=== PATIENT | female | born 1945 | race Caucasian/White ===

== ENCOUNTER 2020-12-31 19:17 | Emergency (ER) | payer MEDICARE, SELFPAY ==
[2020-12-31 19:21] VITALS: BP 153/76; PULSE 76; RESP 16; TEMP 36.3; O2SAT 99; BMI 27.4
--- NOTE | 2020-12-31 20:10 | XR_ITS ---
WS: [id number] Left hip, AP and frog leg views, 12/31/2020 Clinical Data: injury Comparison: None. Findings: No fractures or dislocations are seen. The left hip joint is intact. The soft tissues are not remarka ble. The adjacent pelvis is normal. XR/XR hip LT 2-3V wo/w pel* [id number] Impression: Negative left hip.
--- NOTE | 2020-12-31 20:10 | XR_ITS ---
WS: [id number] Right wrist, 3 views, 12/31/2020 Clinical Data: injury Comparison: None. Findings: There is a nondisplaced fracture of the radial styloid. There is soft tissue swelling over the fractu re site. The distal ulna, carpal bones are intact. XR/XR wrist RT min 3V* [id number] Impression: Fracture of radial styloid of the right wrist with overlying soft tissue sean pereira
--- NOTE | 2020-12-31 20:10 | CTR_ITS ---
PROCEDURE INFORMATION: Exam: CT Maxillofacial Without Contrast; Mandible Exam date and time: 12/31/2020 8:14 PM Age: 75 years old Clinical indication: Injury or trauma; Fall; Blunt trauma (contusions or hematomas); Lip/oral cavity; Lower TECHNIQUE: Imaging protocol: Computed tomography maxillofacial without contrast. Exam focused on the mandible. Total images: 288 Radiation optimization: All CT scans at this facility use at least one of these dose optimization techniques: automated exposure control; mA and/or kV adjustment per patient size (includes targeted exams where dose is matched to clinical indication); or iterative reconstruction. COMPARISON: No relevant prior studies available. RADIATION DOSE METRICS: Total DLP (mGy-cm): 794.89 FINDINGS: Bones/joints: Mandible is unremarkable. No acute fracture. No visible facial bone fracture within the field of view. Paranasal sinuses: Normal. No air-fluid levels. Soft tissues: Mild soft tissue contusion upper lip. CT/CT facial bones wo con* [id number] IMPRESSION: 1. No visible facial bone fracture. 2. Mild soft tissue contusion upper lip. Radiation Dose CTDIVOL = (mGy): DLP = 794.89 (mGy-cm)
--- NOTE | 2020-12-31 20:10 | XR_ITS ---
WS: [id number] Left knee, 3 views, 12/31/2020 Clinical Data: injury Comparison: None. Findings: No fractures or dislocations are seen. There is medial joint compartment narrowing.. The patella is i ntact. There is swelling over the medial aspect of the left knee. XR/XR knee LT 3V* [id number] Impression: 1. Negative for fracture. 2. Medial joint compartment narrowing. 3. Soft tissue swelling over medial left knee.
--- NOTE | 2020-12-31 20:10 | XR_ITS ---
WS: [id number] Right knee, 3 views, 12/31/2020 Clinical Data: injury Comparison: None. Findings: No fractures or dislocations are seen. There is medial joint compartment narrowing. The patella is in tact. There is swelling in the subcutaneous tissue and the suprapatellar bursa. XR/XR knee RT 3V* [id number] Impression: 1. Anterior subcutaneous swelling and swelling this suprapatellar bursa of the right knee. 2. Narrowing of the medial joint compartment.
--- NOTE | 2020-12-31 20:10 | CTR_ITS ---
PROCEDURE INFORMATION: Exam: CT Head Without Contrast Exam date and time: 12/31/2020 8:14 PM Age: 75 years old Clinical indication: Injury or trauma; Fall; Blunt trauma (contusions or hematomas); Additional info: MORALES TECHNIQUE: Imaging protocol: Computed tomography of the head without contrast. Total images: 189 Radiation optimization: All CT scans at this facility use at least one of these dose optimization techniques: automated exposure control; mA and/or kV adjustment per patient size (includes targeted exams where dose is matched to clinical indication); or iterative reconstruction. COMPARISON: No relevant prior studies available. RADIATION DOSE METRICS: Total DLP (mGy-cm): 809.08 FINDINGS: Brain: No evidence of active or acute intracranial pathologic process, hemorrhage, or trauma. 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 No mass effect. No midline shift. No hyperdense MCA or insular ribbon sign. Atrophic changes not inconsistent with the patient's chronological age. Cerebral ventricles: No ventriculomegaly. Bones/joints: Unremarkable. No acute fracture. Paranasal sinuses: Visualized sinuses are unremarkable. No fluid levels. Mastoid air cells: Visualized mastoid air cells are well aerated. Soft tissues: Unremarkable. CT/CT head wo con* [id number] IMPRESSION: No evidence of active or acute intracranial pathologic process, hemorrhage, or trauma. Radiation Dose CTDIVOL = (mGy): DLP = 809.08 (mGy-cm)
--- NOTE | 2020-12-31 20:50 | PC.PHAR ---
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
--- NOTE | 2020-12-31 20:50 | W.ED.FALL ---
HPI - Fall General: Chief Complaint: Fall Stated Complaint: fall, injury to right knee, hit face first Time Seen by Provider: 12/31/20 20:18 Source: patient Mode of arrival: ambulatory Limitations: no limitations History of Present Illness: HPI Narrative: 75-year-old female states that she fell outside on a step is prior to arrival. She states she had tripped and fell onto some gravel. States she landed on her arms outstretched hand her left knee hit the ground as well. States she also hit her face. She is on blood thinners. States the main pain she is having is to her left t knee and does have swelling to right knee. She also has pain to her right wrist as well. She states she also hit her nose and upper lip did strike her head as well. She denies any facial or head pain currently. She denies any neck pain. States that her knee and wrist pain roughly a 3 out of 10. She is able to ambulate. MD complaint: fall Associated symptoms-after fall: Denies abdominal pain, chest pain, headache(s) or neck pain Review of Systems Const: Denies: fever(s), chills, body aches or change in appetite Eyes: Denies: blurry vision or eye discomfort ENMT: Denies: throat pain or dental pain Card: Denies: chest pain Resp: Denies: dyspnea GI: Denies: abdominal pain, nausea, vomiting or diarrhea : Denies: dysuria Musc: Reports: extremity pain; Denies: neck pain or back pain Skin/Breast: Denies: rash Neuro: Denies: headache(s) Psych: Denies: depression Gilberto/Lymph: Denies: easy bruising All/Imm: Denies: urticaria Physical Exam Const: COMMON NORMALS: no acute distress, patient oriented x3 and healthy appearing HENMT: COMMON NORMALS: normocephalic and atraumatic HEAD & SCALP: normocephalic and atraumatic OTHER: Contusion to upper lip. Eye: COMMON NORMALS: Equal, round and reactive pupils present and EOMs intact bilaterally PUPIL: Yes Equal, round and reactive pupils present Neck/C-Spine: COMMON NORMALS: full ROM and supple Chest: COMMONS NORMALS: normal inspection of the chest and normal palpation of entire chest wall Resp: COMMON NORMALS: normal respiratory effort, No retractions, No use of accessory muscles and clear to auscultation bilaterally AUSCULTATION: clear to auscultation bilaterally Cardio: COMMON NORMALS: regular rate, regular rhythm and No murmurs present (Cardio) RATE: regular rate RHYTHM: regular rhythm GI: COMMON NORMALS: Normal to inspection, nondistended, normoactive bowel sounds present, Soft to palpation, non-tender and no masses PALPATION: Yes Soft to palpation Extremity: COMMON NORMALS: normal to inspection and full ROM OTHER: Some tenderness over right wrist does have contusions to left knee with abrasions she has full range of motion able to walk as well. Neuro: COMMON NORMALS: patient oriented x3, moves all extremities and no focal motor deficits Psych: COMMON NORMALS: mental status grossly normal, Normal thought process present and cooperative THOUGHT PROCESS: Normal thought process present Skin: COMMON NORMALS: no rashes or lesions noted and no wounds GENERAL SKIN EXAM: no rashes or lesions noted Course Vital Signs: Vital signs: Vital Signs Temperature 97.4 F L 12/31/20 19:21 Pulse Rate 76 12/31/20 19:21 Respiratory Rate 16 12/31/20 19:21 Blood Pressure 153/76 12/31/20 19:21 Pulse Oximetry 99 12/31/20 19:21 MDM - Fall MDM Narrative: Medical decision making narrative: Post presents here with a distal radius fracture after a fall. She does have a large knee contusion and a facial contusion as well. She has no signs of fractures elsewhere though. Her head CT is normal. Patient's knee was Josesito wrap. She is able ambulate. She had abrasions with no laceration. She is to follow-up with PCP and follow-up with orthopedics and return if worsening. She understands agrees to plan. Imaging Data^: xr r knee: Attestation: I personally reviewed and interpreted this imaging study as follows: My impression: no fx xr L knee: Attestation: I personally reviewed and interpreted this imaging study as follows: My impression: no fx xr L hip: Attestation: I personally reviewed and interpreted this imaging study as follows: My impression: no acute fx xr r wrist: Attestation: I personally reviewed and interpreted this imaging study as follows: My impression: distal radius fx CT Head: Attestation: I personally reviewed and interpreted this imaging study as follows: Radiologist's impression: [facility] [address] [place] [address] CT Scan Report Signed Patient: Quin Wilson Unit #: [id number] : 1945 Age/Sex: 75 / F ADM Date: 12/31/20 Loc: ER Room/Bed: Attending Dr: Ordering Provider/Ordering MD: Jose Leon MD Date of Service: 12/31/20 Procedure(s): CT head wo con* [id number] Accession Number(s): [id number] Report Number: [id number] PROCEDURE INFORMATION: Exam: CT Head Without Contrast Exam date and time: 12/31/2020 8:14 PM Age: 75 years old Clinical indication: Injury or trauma; Fall; Blunt trauma (contusions or hematomas); Additional info: MORALES TECHNIQUE: Imaging protocol: Computed tomography of the head without contrast. Total images: 189 Radiation optimization: All CT scans at this facility use at least one of these dose optimization techniques: automated exposure control; mA and/or kV adjustment per patient size (includes targeted exams where dose is matched to clinical indication); or iterative reconstruction. COMPARISON: No relevant prior studies available. RADIATION DOSE METRICS: Total DLP (mGy-cm): 809.08 FINDINGS: Brain: No evidence of active or acute intracranial pathologic process, hemorrhage, or trauma. 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 No mass effect. No midline shift. No hyperdense MCA or insular ribbon sign. Atrophic changes not inconsistent with the patient's chronological age. Cerebral ventricles: No ventriculomegaly. Bones/joints: Unremarkable. No acute fracture. Paranasal sinuses: Visualized sinuses are unremarkable. No fluid levels. Mastoid air cells: Visualized mastoid air cells are well aerated. Soft tissues: Unremarkable. CT/CT head wo con* [id number] IMPRESSION: No evidence of active or acute intracranial pathologic process, hemorrhage, or trauma. Other CT: Radiologist's impression: [facility] [address] [place] [address] CT Scan Report Signed Patient: Quin Wilson Unit #: [id number] : 1945 Age/Sex: 75 / F ADM Date: 12/31/20 Loc: ER Room/Bed: Attending Dr: Ordering Provider/Ordering MD: Jose Leon MD Date of Service: 12/31/20 Procedure(s): CT facial bones wo con* [id number] Accession Number(s): [id number] Report Number: [id number] PROCEDURE INFORMATION: Exam: CT Maxillofacial Without Contrast; Mandible Exam date and time: 12/31/2020 8:14 PM Age: 75 years old Clinical indication: Injury or trauma; Fall; Blunt trauma (contusions or hematomas); Lip/oral cavity; Lower TECHNIQUE: Imaging protocol: Computed tomography maxillofacial without contrast. Exam focused on the mandible. Total images: 288 Radiation optimization: All CT scans at this facility use at least one of these dose optimization techniques: automated exposure control; mA and/or kV adjustment per patient size (includes targeted exams where dose is matched to clinical indication); or iterative reconstruction. COMPARISON: No relevant prior studies available. RADIATION DOSE METRICS: Total DLP (mGy-cm): 794.89 FINDINGS: Bones/joints: Mandible is unremarkable. No acute fracture. No visible facial bone fracture within the field of view. Paranasal sinuses: Normal. No air-fluid levels. Soft tissues: Mild soft tissue contusion upper lip. CT/CT facial bones wo con* [id number] IMPRESSION: 1. No visible facial bone fracture. 2. Mild soft tissue contusion upper lip. Discharge Plan Discharge Patient Disposition: Home Clinical Impression: Fracture of wrist Qualifiers: Encounter type: initial encounter Fracture type: closed Laterality: right Qualified Code(s): S62.101A - Fracture of unspecified carpal bone, right wrist, initial encounter for closed fracture Fall Qualifiers: Encounter type: initial encounter Qualified Code(s): W19.XXXA - Unspecified fall, initial encounter Contusion of knee Qualifiers: Encounter type: initial encounter Laterality: left Qualified Code(s): S80.02XA - Contusion of left knee, initial encounter Condition: Stable Prescriptions: No Action quetiapine 25 mg tablet 25 mg PO BEDTIME RF: 0 atorvastatin 40 mg tablet 40 mg PO DAILY RF: 0 clopidogrel 75 mg tablet 75 mg PO DAILY RF: 0 Aspir-81 81 mg Tablet,Delayed Release (Dr/Ec) 81 mg PO DAILY RF: 0 warfarin 3 mg tablet 3 mg PO QPM RF: 0 levothyroxine 88 mcg tablet 88 mcg PO QAM RF: 0 alprazolam 0.5 mg tablet 0.5 mg PO BEDTIME RF: 0 amlodipine 10 mg tablet 10 mg PO DAILY RF: 0 pantoprazole 40 mg tablet,delayed release (DR/EC) 40 mg PO BID RF: 0 losartan 100 mg tablet 100 mg PO DAILY RF: 0 escitalopram oxalate 20 mg tablet 20 mg PO DAILY RF: 0 Discharge Orders: Discharge ED (Routine); Ordered 12/31/20 Ordered By: Jose Leon Referrals: Sumanth Quinn MD [Primary Care Provider] - 1-3 days Discharge Diet: Advance as tolerated Discharge Activity: Resume usual activity Patient Instructions: Wrist Fracture in Adults (ED) Coding Level of Care Code ED C Consultant for Estevan Fwaliya Exam Comprehensive
[2020-12-31] MEDS: tetanus-dipt-pertussis 0.5 mL SDV IM (22:16)
[2020-12-31 22:59] VITALS: BP 162/80; PULSE 96; RESP 24; O2SAT 99
--- NOTE | 2021-01-01 09:12 | DCPLANNER ---
Addendum entered by Honey Lassiter 01/06/21 15:49: manager skilled called the ortho clinic to confirm if a follow up appointment had been scheduled for patient. manager skilled spoke with Romi. manager skilled was told that patient stated that she was going to see her primary care physician and then if she needs a follow up appointment with ortho, then she will call clinic. Original Note: manager skilled had message to schedule a follow up appointment for patient with ortho. manager skilled called the ortho clinic, spoke with Nadira, gave clinic patients information. manager skilled was told that patients information would be printed and reviewed. Clinic will call patient with appointment information.
== END 2020-12-31 22:50 | disposition home or self-care (01) ==
PROVIDERS: Emergency Provider Emergency Medicine; PCP Family Medicine
DX: S00.531A Contusion of lip, initial encounter (principal); S80.02XA Contusion of left knee, initial encounter; S52.514A Nondisplaced fracture of right radial styloid process, initial encounter for closed fracture; W01.198A Fall on same level from slipping, tripping and stumbling with subsequent striking against other object, initial encounter; Z23 Encounter for immunization
CPT/HCPCS: 29125; 70450; 70486; 73110; 73502; 73562; 90471; 90715; 99283